=== PATIENT | male | born 1970 | race Two or more races ===

== ENCOUNTER → 2021-06-19 | Outpatient (CLI) | payer OTHER, MEDICAID, MEDICARE ==
[2021-06-19 16:26] LABS: Basophils # (auto) 0.1 10 ^3/uL (0-0.2); Basophils % (auto) 1.6 % (0.0-2.0); Eosinophils # (auto) 0 10 ^3/uL (0-0.8); Eosinophils % (auto) 0.5 % (0.0-7.0); Hematocrit 43.3 % (41.0-53.0); Hemoglobin 15.1 g/dL (13.5-17.5); Lymphocytes % (auto) 25.2 % (10.0-50.0); Mean Corpuscular Hemoglobin 29.7 pg (28.0-32.0); Mean Corpuscular Volume 85.1 fL (80.0-100.0); Monocytes # (auto) 0.4 10 ^3/uL (0-1.3); Monocytes % (auto) 5.4 % (0.0-12.0); Neutrophils # (auto) 5.4 10 ^3/uL (1.6-8.6); Neutrophils % (auto) 67.3 % (37.0-80.0); Nucleated Red Blood Cells % 0.1 %; Red Blood Cells 5.09 10^6/uL (4.5-5.90); Red Cell Distribution Width 12.7 % (11.8-14.3); White Blood Cell 8.1 10^3/uL (4.4-10.8)
[2021-06-19 16:43] LABS: Albumin 3.4 g/dL (3.4-5.0); Calcium 8.5 mg/dL (8.5-10.1); Potassium 3.7 mmol/L (3.5-5.1)
[2021-06-19 16:48] LABS: BUN/Creatinine Ratio 9.7; Bilirubin, Total 0.5 mg/dL (0.2-1.0); Total Protein 7.3 g/dL (6.4-8.2)
== END | disposition home or self-care (01) ==
LOC: LAB 16:09
PROVIDERS: ATTEND Student in an Organized Health Care Education/Training Program
DX: Z00.00 Encounter for general adult medical examination without abnormal findings (principal)
CPT/HCPCS: 36415; 80053; 80061; 82274; 83036; 85025

== ENCOUNTER → 2022-02-08 | Outpatient (CLI) | payer MEDICAID | END | disposition home or self-care (01) | LOC: Rad HDHVI 10:41 | PROVIDERS: ATTEND Internal Medicine | DX: I25.10 Atherosclerotic heart disease of native coronary artery without angina pectoris (principal); I10 Essential (primary) hypertension | CPT/HCPCS: 93306 ==

== ENCOUNTER → 2022-04-16 | Outpatient (CLI) | payer MEDICAID ==
[~2022-04-16] VITALS: Ht 175.3 cm; Wt 77.1 kg
[~2022-04-16] MED LIST: ADENOSINE 65 MG in GIVE UN-DILUTED 0 ML IV ONE; ADENOSINE 90 MG/30 ML INJ IV ONE
== END | disposition home or self-care (01) ==
LOC: Rad HDHVI 08:15
PROVIDERS: ATTEND Internal Medicine
DX: I10 Essential (primary) hypertension (principal); I25.10 Atherosclerotic heart disease of native coronary artery without angina pectoris; I25.2 Old myocardial infarction; E78.5 Hyperlipidemia, unspecified; R07.9 Chest pain, unspecified; Z82.49 Family history of ischemic heart disease and other diseases of the circulatory system
CPT/HCPCS: 78452; 93005; 96374; 96375; J0153

== ENCOUNTER 2022-08-20 13:20 | Emergency (ER) | payer OTHER, MEDICAID ==
[~2022-08-20] VITALS: Ht 175.3 cm; Wt 63.0 kg
[2022-08-20 14:29] LABS: Urine Bacteria NONE SEEN /hpf (None Seen); Urine Blood Negative /uL (Negative); Urine Specific Gravity 1.004 (1.001-1.035); Urine WBC <1 /hpf (0 - 3)
[2022-08-20] MEDS ORDERED: ACETAMINOPHEN 325 MG TAB PO ONE (14:30)
[2022-08-20] MEDS ORDERED: IBUP-1455 PO (15:08)
[2022-08-20] MEDS ORDERED: cefTRIAXone SODIUM 250 MG VL IM ONE (15:15)
[2022-08-20] MEDS ORDERED: AZITHROMYCIN 250 MG TAB PO ONE (15:15)
[2022-08-20 15:58] VITALS: BP 124/80
== END 2022-08-20 16:02 | disposition home or self-care (01) ==
LOC: ER 13:20
DX: R30.0 Dysuria (principal)
CPT/HCPCS: 81001; 87491; 87591; 96372; 99283; J0696

== ENCOUNTER 2022-08-27 18:04 | Emergency (ER) | payer OTHER, MEDICAID ==
[~2022-08-27] VITALS: Ht 175.3 cm; Wt 77.6 kg
[~2022-08-27 18:04] MED LIST changes: -ADENOSINE 65 MG in GIVE UN-DILUTED 0 ML IV ONE; -ADENOSINE 90 MG/30 ML INJ IV ONE; +IBUP-1455 PO
[2022-08-27 19:26] LABS: Basophils # (auto) 0.1 10 ^3/uL (0-0.2); Basophils % (auto) 1.7 % (0.0-2.0); Eosinophils # (auto) 0.6 10 ^3/uL (0-0.8); Eosinophils % (auto) 8.1 % (0.0-7.0); Hematocrit 47.3 % (41.0-53.0); Lymphocytes # (auto) 1.3 10 ^3/uL (0.4-5.4); Lymphocytes % (auto) 18.2 % (10.0-50.0); Mean Corpuscular Hemoglobin 29.1 pg (28.0-32.0); Mean Corpuscular Hgb Conc. 33.8 g/dL (32.0-36.0); Mean Corpuscular Volume 86.3 fL (80.0-100.0); Monocytes # (auto) 0.3 10 ^3/uL (0-1.3); Monocytes % (auto) 4.2 % (0.0-12.0); Neutrophils # (auto) 4.9 10 ^3/uL (1.6-8.6); Neutrophils % (auto) 67.8 % (37.0-80.0); Nucleated Red Blood Cells % 0.2 %; Red Blood Cells 5.49 10^6/uL (4.5-5.90); Red Cell Distribution Width 12.9 % (11.8-14.3); White Blood Cell 7.2 10^3/uL (4.4-10.8)
[2022-08-27 19:45] LABS: Calcium 8.6 mg/dL (8.5-10.1); Potassium 4.2 mmol/L (3.5-5.1)
[2022-08-27 19:50] LABS: BUN/Creatinine Ratio 9.9 (10.0-20.0); Bilirubin, Total 0.6 mg/dL (0.2-1.0)
[2022-08-27 20:11] LABS: Urine Bacteria NONE SEEN /hpf (None Seen); Urine Blood Negative /uL (Negative); Urine Specific Gravity 1.003 (1.001-1.035); Urine WBC <1 /hpf (0 - 3)
[2022-08-27] MEDS ORDERED: CEPH500C PO (20:29)
[2022-08-27] MEDS ORDERED: MECL1TAB42 PO (20:29)
[2022-08-27] MEDS ORDERED: ZOFR4T PO (20:29)
[2022-08-27] MEDS ORDERED: IBU600T PO (20:29)
[2022-08-27] MEDS ORDERED: SODIUM CHLORIDE 0.9% 1,000 ML IV ONE (20:30)
[2022-08-27] MEDS ORDERED: IBUPROFEN 600 MG TAB PO ONE (20:30)
[2022-08-27] MEDS ORDERED: PHENAZOPYRIDINE HCL 100 MG TAB PO ONE (20:30)
[2022-08-27] MEDS ORDERED: MECLIZINE HCL 25 MG TAB PO ONE (20:30)
[2022-08-27] MEDS ORDERED: ONDANSETRON ODT 4 MG TAB PO ONE (20:30)
[2022-08-27 21:16] VITALS: BP 131/89; PULSE 78; RESP 16; TEMP 98; O2SAT 99
== END 2022-08-27 22:18 | disposition home or self-care (01) ==
LOC: ER 18:04
DX: R42 Dizziness and giddiness (principal); R51.9 Headache, unspecified; E86.0 Dehydration; N39.0 Urinary tract infection, site not specified; I10 Essential (primary) hypertension
CPT/HCPCS: 36415; 70450; 80053; 81001; 84484; 85025; 93005; 96360; 99284; J7030; J8597; Q0162

== ENCOUNTER 2022-09-02 05:54 | Emergency (ER) | payer OTHER, MEDICAID ==
[~2022-09-02] VITALS: Ht 175.3 cm; Wt 54.0 kg
[~2022-09-02 05:54] MED LIST changes: +CEPH500C PO; +IBU600T PO; +MECL1TAB42 PO; +ZOFR4T PO
[2022-09-02 06:16] LABS: Basophils # (auto) 0 10 ^3/uL (0-0.2); Basophils % (auto) 0.1 % (0.0-2.0); Eosinophils # (auto) 0 10 ^3/uL (0-0.8); Eosinophils % (auto) 0.5 % (0.0-7.0); Hematocrit 47.6 % (41.0-53.0); Hemoglobin 16.3 g/dL (13.5-17.5); Lymphocytes # (auto) 2.3 10 ^3/uL (0.4-5.4); Lymphocytes % (auto) 30.8 % (10.0-50.0); Mean Corpuscular Hemoglobin 29.9 pg (28.0-32.0); Mean Corpuscular Hgb Conc. 34.3 g/dL (32.0-36.0); Mean Corpuscular Volume 87.1 fL (80.0-100.0); Monocytes # (auto) 0.5 10 ^3/uL (0-1.3); Monocytes % (auto) 6.6 % (0.0-12.0); Neutrophils # (auto) 4.6 10 ^3/uL (1.6-8.6); Nucleated Red Blood Cells % 0.1 %; Red Blood Cells 5.46 10^6/uL (4.5-5.90); Red Cell Distribution Width 13.1 % (11.8-14.3); White Blood Cell 7.5 10^3/uL (4.4-10.8)
[2022-09-02 06:39] LABS: Albumin 3.7 g/dL (3.4-5.0); BUN/Creatinine Ratio 10.8 (10.0-20.0); Calcium 8.3 mg/dL (8.5-10.1)
[2022-09-02 06:41] LABS: Bilirubin, Total 0.8 mg/dL (0.2-1.0); Total Protein 7.3 g/dL (6.4-8.2)
[2022-09-02 06:46] LABS: Urine Bacteria NONE SEEN /hpf (None Seen); Urine Blood Negative /uL (Negative); Urine Mucus FEW (None Seen); Urine Specific Gravity 1.019 (1.001-1.035); Urine WBC 2 /hpf (0 - 3)
[2022-09-02] MEDS ORDERED: MECL1TAB42 PO (08:13)
[2022-09-02 08:15] VITALS: BP 138/82; PULSE 86; RESP 16; TEMP 97.8; O2SAT 98
[2022-09-02] MEDS ORDERED: MECLIZINE HCL 25 MG TAB PO ONE (08:15)
== END 2022-09-02 08:36 | disposition home or self-care (01) ==
LOC: ER 05:54
DX: R42 Dizziness and giddiness (principal); I10 Essential (primary) hypertension; R30.0 Dysuria; I25.10 Atherosclerotic heart disease of native coronary artery without angina pectoris
CPT/HCPCS: 36415; 70450; 80053; 81001; 84484; 85025; 93005; 99284; J8597

== ENCOUNTER 2022-09-13 19:36 | Emergency (ER) | payer OTHER, MEDICAID ==
[~2022-09-13] VITALS: Ht 175.3 cm; Wt 74.7 kg
[2022-09-13 22:13] LABS: Urine Bacteria NONE SEEN /hpf (None Seen); Urine Blood Negative /uL (Negative); Urine Clarity Clear (Clear); Urine Color Colorless (Yellow); Urine Protein, UAD Negative (Negative); Urine Specific Gravity 1.005 (1.001-1.035); Urine Urobilinogen Normal (Negative); Urine WBC <1 /hpf (0 - 3)
[2022-09-13 22:17] LABS: Basophils # (auto) 0 10 ^3/uL (0-0.2); Basophils % (auto) 0.2 % (0.0-2.0); Eosinophils # (auto) 0 10 ^3/uL (0-0.8); Eosinophils % (auto) 0.6 % (0.0-7.0); Hematocrit 49.7 % (41.0-53.0); Hemoglobin 16.7 g/dL (13.5-17.5); Lymphocytes # (auto) 2.1 10 ^3/uL (0.4-5.4); Lymphocytes % (auto) 24.9 % (10.0-50.0); Mean Corpuscular Hemoglobin 29.2 pg (28.0-32.0); Mean Corpuscular Hgb Conc. 33.5 g/dL (32.0-36.0); Mean Corpuscular Volume 87.1 fL (80.0-100.0); Monocytes # (auto) 0.6 10 ^3/uL (0-1.3); Monocytes % (auto) 7.4 % (0.0-12.0); Neutrophils # (auto) 5.6 10 ^3/uL (1.6-8.6); Neutrophils % (auto) 66.9 % (37.0-80.0); Nucleated Red Blood Cells % 0.1 %; Red Blood Cells 5.71 10^6/uL (4.5-5.90); White Blood Cell 8.4 10^3/uL (4.4-10.8)
[2022-09-13 22:35] LABS: Albumin 3.9 g/dL (3.4-5.0); Calcium 8.9 mg/dL (8.5-10.1); Magnesium 2.7 mg/dL (1.6-2.6); Potassium 4.3 mmol/L (3.5-5.1)
[2022-09-13 22:38] LABS: Bilirubin, Total 0.4 mg/dL (0.2-1.0)
[2022-09-14 00:24] VITALS: BP 125/89; PULSE 71; RESP 18; TEMP 97.8; O2SAT 96
[2022-09-14] MEDS ORDERED: PROM25TA10 PO (00:26)
[2022-09-14] MEDS ORDERED: PROMETHAZINE HCL 6.25 MG/5 ML ORAL SYRUP PO ONE (00:30)
== END 2022-09-14 00:43 | disposition home or self-care (01) ==
LOC: ER 19:36
DX: R42 Dizziness and giddiness (principal); R51.9 Headache, unspecified; I10 Essential (primary) hypertension; I25.10 Atherosclerotic heart disease of native coronary artery without angina pectoris; Z79.899 Other long term (current) drug therapy
CPT/HCPCS: 36415; 70450; 71045; 80053; 81001; 83735; 84484; 85025; 93005

== ENCOUNTER 2022-10-24 19:37 | Emergency (ER) | payer OTHER, MEDICAID ==
[~2022-10-24] VITALS: Ht 175.3 cm; Wt 75.0 kg
[~2022-10-24 19:37] MED LIST changes: +PROM25TA10 PO
[2022-10-24] MEDS ORDERED: KETOROLAC TROMETH 60MG/2ML VIAL IM ONE (20:45)
[2022-10-24] MEDS ORDERED: AZITHROMYCIN 250 MG TAB PO ONE (20:45)
[2022-10-24] MEDS ORDERED: cefTRIAXone SOD 1,000 MG VL IM ONE (20:45)
[2022-10-24 21:18] LABS: Urine Bacteria NONE SEEN /hpf (None Seen); Urine Blood Negative /uL (Negative); Urine Clarity Clear (Clear); Urine Color Yellow (Yellow); Urine Protein, UAD Negative (Negative); Urine Specific Gravity 1.003 (1.001-1.035); Urine Urobilinogen Normal (Negative); Urine WBC <1 /hpf (0 - 3); Urine pH 6.5 (5.0-8.0)
[2022-10-24 21:44] LABS: Basophils # (auto) 0 10 ^3/uL (0-0.2); Basophils % (auto) 0.2 % (0.0-2.0); Eosinophils # (auto) 0 10 ^3/uL (0-0.8); Eosinophils % (auto) 0.4 % (0.0-7.0); Hematocrit 46.7 % (41.0-53.0); Hemoglobin 16.1 g/dL (13.5-17.5); Lymphocytes # (auto) 2.3 10 ^3/uL (0.4-5.4); Lymphocytes % (auto) 31.9 % (10.0-50.0); Mean Corpuscular Hemoglobin 29.9 pg (28.0-32.0); Mean Corpuscular Hgb Conc. 34.6 g/dL (32.0-36.0); Mean Corpuscular Volume 86.5 fL (80.0-100.0); Monocytes # (auto) 0.6 10 ^3/uL (0-1.3); Monocytes % (auto) 7.9 % (0.0-12.0); Neutrophils # (auto) 4.3 10 ^3/uL (1.6-8.6); Neutrophils % (auto) 59.6 % (37.0-80.0); Nucleated Red Blood Cells % 0.1 %; Red Blood Cells 5.39 10^6/uL (4.5-5.90); Red Cell Distribution Width 13.5 % (11.8-14.3); White Blood Cell 7.3 10^3/uL (4.4-10.8)
[2022-10-24 22:06] LABS: Alanine Aminotransferase 18 U/L (7-40); Albumin 4.4 g/dL (3.2-4.8); Alkaline Phosphatase 92 U/L (46-116); Anion Gap 5 (5-15); Aspartate Aminotransferase 16 U/L (13-40); BUN/Creatinine Ratio 7.7 (10.0-20.0); Blood Urea Nitrogen 7 mg/dL (9-23); Calcium 9.5 mg/dL (8.7-10.4); Carbon Dioxide 27 mmol/L (20-30); Chloride 104 mmol/L (98-107); Glucose 97 mg/dL (74-106); Potassium 4.3 mmol/L (3.5-5.1); Sodium 136 mmol/L (136-145)
[2022-10-24 22:07] LABS: Bilirubin, Total 0.8 mg/dL (0.2-1.0); Total Protein 7.7 g/dL (5.7-8.2)
[2022-10-25] MEDS ORDERED: HYDROcodone-ACET 5/325MG TAB PO ONE
[2022-10-25] MEDS ORDERED: KETOROLAC TROMETH 60MG/2ML VIAL IM ONE
[2022-10-25] MEDS ORDERED: TRAM50TA2 PO (00:02)
[2022-10-25 00:10] VITALS: PULSE 72; O2SAT 98
[2022-10-25 00:23] VITALS: BP 132/99; PULSE 76; RESP 16; TEMP 98.1; O2SAT 98
[2022-10-26 06:06] LABS: RPR Non Reactive (Non Reactive)
[2022-10-27 08:06] LABS: Chlamydia Trachomatis, NAA Negative (Negative); Neisseria gonorrhoeae, NAA Negative (Negative)
== END 2022-10-25 00:33 | disposition home or self-care (01) ==
LOC: ER 19:37
DX: R30.0 Dysuria (principal); I10 Essential (primary) hypertension; I25.10 Atherosclerotic heart disease of native coronary artery without angina pectoris; Z79.1 Long term (current) use of non-steroidal anti-inflammatories (NSAID); Z79.899 Other long term (current) drug therapy
CPT/HCPCS: 36415; 80053; 81001; 85025; 86592; 87086; 87491; 87591; 96372; 99284; J0696; J1885

== ENCOUNTER 2022-11-17 09:54 | Emergency (ER) | payer OTHER, MEDICAID ==
[~2022-11-17] VITALS: Ht 175.3 cm; Wt 77.1 kg
[~2022-11-17 09:54] MED LIST changes: +TRAM50TA2 PO
[2022-11-17 11:03] LABS: Basophils # (auto) 0 10 ^3/uL (0-0.2); Basophils % (auto) 0.1 % (0.0-2.0); Eosinophils # (auto) 0 10 ^3/uL (0-0.8); Hematocrit 50.8 % (41.0-53.0); Hemoglobin 17.2 g/dL (13.5-17.5); Lymphocytes # (auto) 1.3 10 ^3/uL (0.4-5.4); Lymphocytes % (auto) 18.6 % (10.0-50.0); Mean Corpuscular Hemoglobin 29.6 pg (28.0-32.0); Mean Corpuscular Hgb Conc. 33.9 g/dL (32.0-36.0); Mean Corpuscular Volume 87.2 fL (80.0-100.0); Monocytes # (auto) 0.4 10 ^3/uL (0-1.3); Monocytes % (auto) 6.1 % (0.0-12.0); Neutrophils # (auto) 5.1 10 ^3/uL (1.6-8.6); Neutrophils % (auto) 75.2 % (37.0-80.0); Nucleated Red Blood Cells % 0.1 %; Red Blood Cells 5.82 10^6/uL (4.5-5.90); Red Cell Distribution Width 13.2 % (11.8-14.3); White Blood Cell 6.7 10^3/uL (4.4-10.8)
[2022-11-17 11:21] LABS: Alanine Aminotransferase 21 U/L (7-40); Albumin 4.5 g/dL (3.2-4.8); Alkaline Phosphatase 101 U/L (46-116); Anion Gap 6 (5-15); Aspartate Aminotransferase 20 U/L (13-40); BUN/Creatinine Ratio 5.6 (10.0-20.0); Blood Urea Nitrogen 5 mg/dL (9-23); Calcium 9.4 mg/dL (8.7-10.4); Carbon Dioxide 28 mmol/L (20-30); Chloride 104 mmol/L (98-107); Glucose 104 mg/dL (74-106); Potassium 4.7 mmol/L (3.5-5.1); Sodium 138 mmol/L (136-145); Total Protein 8.1 g/dL (5.7-8.2)
[2022-11-17 11:29] LABS: Urine Bacteria NONE SEEN /hpf (None Seen); Urine Blood Negative /uL (Negative); Urine Clarity Clear (Clear); Urine Color STRAW (Yellow); Urine Protein, UAD Negative (Negative); Urine Specific Gravity 1.007 (1.001-1.035); Urine Urobilinogen Normal (Negative); Urine WBC 1 /hpf (0 - 3)
[2022-11-17] MEDS ORDERED: ONDANSETRON ODT 4 MG TAB PO ONE (12:00)
[2022-11-17] MEDS ORDERED: MAALOX PLUS or MAALOX 30 ML PO ONE (12:00)
[2022-11-17] MEDS ORDERED: LIDOCAINE VISCOUS 2% 15ML UD PO ONE (12:00)
[2022-11-17] MEDS ORDERED: DONNATAL 5ml ORAL Elix (BELLADONNA ALK-PHENOBARB) PO ONE (12:00)
[2022-11-17 14:24] LABS: Lactic Acid w/Reflex 2.4 mmol/L (0.4-2.0)
[2022-11-17] MEDS ORDERED: NAP500T PO (16:28)
[2022-11-17 16:40] VITALS: BP 133/92; PULSE 100; RESP 17; TEMP 98.1; O2SAT 97
== END 2022-11-17 17:41 | disposition home or self-care (01) ==
LOC: ER 09:54
DX: N50.812 Left testicular pain (principal); N50.811 Right testicular pain; N43.3 Hydrocele, unspecified; R10.2 Pelvic and perineal pain; I10 Essential (primary) hypertension
CPT/HCPCS: 36415; 76870; 80053; 81001; 83605; 83690; 84484; 85025; 93005; 99284; Q0162

== ENCOUNTER 2022-11-22 23:26 | Emergency (ER) | payer OTHER, MEDICAID ==
[~2022-11-22] VITALS: Ht 172.7 cm; Wt 90.0 kg
[~2022-11-22 23:26] MED LIST changes: +NAP500T PO
[2022-11-23 00:10] LABS: Basophils # (auto) 0 10 ^3/uL (0-0.2); Basophils % (auto) 0.1 % (0.0-2.0); Eosinophils # (auto) 0 10 ^3/uL (0-0.8); Eosinophils % (auto) 0.5 % (0.0-7.0); Hematocrit 46.5 % (41.0-53.0); Hemoglobin 15.8 g/dL (13.5-17.5); Lymphocytes # (auto) 1.9 10 ^3/uL (0.4-5.4); Lymphocytes % (auto) 23.8 % (10.0-50.0); Mean Corpuscular Hemoglobin 29.5 pg (28.0-32.0); Mean Corpuscular Hgb Conc. 33.9 g/dL (32.0-36.0); Monocytes # (auto) 0.5 10 ^3/uL (0-1.3); Monocytes % (auto) 6.4 % (0.0-12.0); Neutrophils # (auto) 5.4 10 ^3/uL (1.6-8.6); Neutrophils % (auto) 69.2 % (37.0-80.0); Red Blood Cells 5.35 10^6/uL (4.5-5.90); Red Cell Distribution Width 13.2 % (11.8-14.3); White Blood Cell 7.8 10^3/uL (4.4-10.8)
[2022-11-23] MEDS ORDERED: SODIUM CHLORIDE 0.9% 2,700 ML IV ONE (00:15)
[2022-11-23 00:20] VITALS: O2SAT 98
[2022-11-23 00:30] VITALS: TEMP 98.6
[2022-11-23 00:32] LABS: Alanine Aminotransferase 15 U/L (7-40); Albumin 4.2 g/dL (3.2-4.8); Alkaline Phosphatase 91 U/L (46-116); Anion Gap 8 (5-15); Aspartate Aminotransferase 15 U/L (13-40); BUN/Creatinine Ratio 7.2 (10.0-20.0); Blood Urea Nitrogen 6 mg/dL (9-23); Calcium 8.9 mg/dL (8.7-10.4); Carbon Dioxide 24 mmol/L (20-30); Chloride 106 mmol/L (98-107); Glucose 103 mg/dL (74-106); Potassium 3.5 mmol/L (3.5-5.1); Sodium 138 mmol/L (136-145); Total Protein 7.3 g/dL (5.7-8.2)
[2022-11-23] MEDS ORDERED: NITR-87 PO (01:37)
[2022-11-23 02:04] LABS: Urine Bacteria NONE SEEN /hpf (None Seen); Urine Blood Negative /uL (Negative); Urine Clarity Clear (Clear); Urine Color Colorless (Yellow); Urine Protein, UAD Negative (Negative); Urine Specific Gravity 1.005 (1.001-1.035); Urine Urobilinogen Normal (Negative); Urine WBC <1 /hpf (0 - 3)
[2022-11-23 02:17] LABS: Amphetamine Screen, Urine Neg (NEGATIVE); Barbiturate Scree,Urine Neg (NEGATIVE); Benzodiazephine Screen, Urine Neg (NEGATIVE); Cannabinoid Screen, Urine Neg (NEGATIVE); Cocaine Screen, Urine Neg (NEGATIVE); Opiate Scree,Urine Neg (NEGATIVE); Phencyclidine Screen, Urine Neg (NEGATIVE)
[2022-11-23 03:00] VITALS: BP 131/89; PULSE 73; RESP 16; O2SAT 97
== END 2022-11-23 03:37 | disposition home or self-care (01) ==
LOC: EDBD 23:26 → ER 23:26
DX: R06.02 Shortness of breath (principal); T36.8X5A Adverse effect of other systemic antibiotics, initial encounter; R51.9 Headache, unspecified; I10 Essential (primary) hypertension; I25.10 Atherosclerotic heart disease of native coronary artery without angina pectoris; Z79.1 Long term (current) use of non-steroidal anti-inflammatories (NSAID); Z79.899 Other long term (current) drug therapy; Y92.89 Other specified places as the place of occurrence of the external cause
CPT/HCPCS: 36415; 70450; 71045; 80053; 80307; 81001; 83605; 83690; 83735; 83880; 84484; 85025; 87040; 93005; 96360; 99285; J7030

== ENCOUNTER → 2022-12-02 | Outpatient (CLI) | payer OTHER ==
[~2022-12-02] MED LIST changes: +NITR-87 PO
== END | disposition home or self-care (01) ==
LOC: Rad HDHVI 12:51
PROVIDERS: ATTEND Internal Medicine Cardiovascular Disease
DX: R42 Dizziness and giddiness (principal); E78.5 Hyperlipidemia, unspecified
CPT/HCPCS: 93306

== ENCOUNTER 2022-12-25 16:39 | Emergency (ER) | payer OTHER, MEDICAID ==
[~2022-12-25] VITALS: Ht 175.3 cm; Wt 76.0 kg
[2022-12-25 16:47] VITALS: BP 123/61; PULSE 109; RESP 16; TEMP 98.4; O2SAT 98
[2022-12-25] MEDS ORDERED: cefTRIAXone SOD 1,000 MG VL IM ONE (19:45)
[2022-12-25] MEDS ORDERED: IBUPROFEN 600 MG TAB PO ONE (19:45)
[2022-12-25] MEDS ORDERED: DexAMETHasone SOD PHOS 10MG/1ML VIAL INJ IM ONE (19:45)
[2022-12-25] MEDS ORDERED: LIDOCAINE VISCOUS 2% 15ML UD MT ONE (19:45)
[2022-12-25] MEDS ORDERED: PRED20TA2 PO (19:47)
[2022-12-25] MEDS ORDERED: LIDV15LQ MT (19:47)
[2022-12-25] MEDS ORDERED: IBUP1TAB5 PO (19:47)
== END 2022-12-25 20:40 | disposition home or self-care (01) ==
LOC: ER 16:39
DX: J03.90 Acute tonsillitis, unspecified (principal); I10 Essential (primary) hypertension; I25.2 Old myocardial infarction; I25.10 Atherosclerotic heart disease of native coronary artery without angina pectoris; Z79.1 Long term (current) use of non-steroidal anti-inflammatories (NSAID); Z79.899 Other long term (current) drug therapy
CPT/HCPCS: 96372; 99284; J0696; J1100

== ENCOUNTER 2023-01-01 05:02 | Emergency (ER) | payer OTHER, MEDICAID ==
[~2023-01-01] VITALS: Ht 175.3 cm; Wt 77.3 kg
[~2023-01-01 05:02] MED LIST changes: +IBUP1TAB5 PO; +LIDV15LQ MT; +PRED20TA2 PO
[2023-01-01 06:16] VITALS: TEMP 98
[2023-01-01] MEDS ORDERED: ACETAMINOPHEN/CODEINE#3 (300/30mg) TAB PO ONE (06:30)
[2023-01-01 06:52] LABS: Hematocrit 47.7 % (41.0-53.0); Hemoglobin 16.2 g/dL (13.5-17.5); Mean Corpuscular Hemoglobin 28.9 pg (28.0-32.0); Mean Corpuscular Volume 85.1 fL (80.0-100.0); Red Blood Cells 5.61 10^6/uL (4.5-5.90); Red Cell Distribution Width 13.1 % (11.8-14.3); White Blood Cell 17.2 10^3/uL (4.4-10.8)
[2023-01-01 07:06] LABS: Alanine Aminotransferase 40 U/L (7-40); Albumin 3.8 g/dL (3.2-4.8); Alkaline Phosphatase 92 U/L (46-116); Anion Gap 4 (5-15); Aspartate Aminotransferase 22 U/L (13-40); BUN/Creatinine Ratio 21.7 (10.0-20.0); Blood Urea Nitrogen 20 mg/dL (9-23); Calcium 8.4 mg/dL (8.5-10.1); Carbon Dioxide 26 mmol/L (20-30); Chloride 98 mmol/L (98-107); Glucose 108 mg/dL (74-106); Potassium 3.9 mmol/L (3.5-5.1); Sodium 128 mmol/L (136-145)
[2023-01-01 07:07] LABS: Bilirubin, Total 1.6 mg/dL (0.2-1.0); Total Protein 6.8 g/dL (5.7-8.2)
[2023-01-01 07:27] LABS: Band Neutrophils % (manual) 0; Basophils % (manual) 0 (0.0-2.0); Blast Cells 0; Eosinophils % (manual) 0 (0-7); Metamyelocytes % 0; Myelocytes % 0; Promyelocytes % 0; Reactive Lymphocytes 0
[2023-01-01 07:52] LABS: Urine Bacteria FEW /hpf (None Seen); Urine Blood Negative /uL (Negative); Urine Clarity Clear (Clear); Urine Color Straw (Yellow); Urine Protein, UAD Negative (Negative); Urine Specific Gravity 1.005 (1.001-1.035); Urine Urobilinogen Normal (Negative); Urine WBC <1 /hpf (0 - 3)
[2023-01-01] MEDS ORDERED: HYDROcodone-ACET 5/325MG TAB PO ONE (08:00)
[2023-01-01] MEDS ORDERED: KETOROLAC TROMETH 60MG/2ML VIAL IM ONE (08:45)
[2023-01-01] MEDS ORDERED: DexAMETHasone SOD PHOS 10MG/1ML VIAL INJ IM ONE (08:45)
[2023-01-01] MEDS ORDERED: LEVO750T8 PO ×2 (09:09)
[2023-01-01] MEDS ORDERED: TRAM50TA2 PO (09:09)
[2023-01-01] MEDS ORDERED: IBUP-1455 PO (09:10)
[2023-01-01 09:13] LABS: Lymphocytes % (manual) 9 (10.0-50.0); Monocytes % (manual) 7 (0-12); Platelet Estimate Adequate
[2023-01-01 09:20] VITALS: BP 125/91; PULSE 90; RESP 18; O2SAT 96
[2023-01-08] MEDS ORDERED: AZIT-81 PO (10:44)
[2023-01-08] MEDS ORDERED: BACDST PO (10:44)
== END 2023-01-01 09:21 | disposition home or self-care (01) ==
LOC: ER 05:02
DX: J18.9 Pneumonia, unspecified organism (principal); N41.9 Inflammatory disease of prostate, unspecified; I10 Essential (primary) hypertension; I25.2 Old myocardial infarction
CPT/HCPCS: 36415; 74176; 80053; 81001; 85007; 85027; 96372; 99285; J1100; J1885

== ENCOUNTER 2023-02-28 13:38 | Emergency (ER) | payer OTHER, MEDICAID ==
[~2023-02-28] VITALS: Ht 175.3 cm; Wt 71.4 kg
[~2023-02-28 13:38] MED LIST changes: +AZIT-81 PO; +BACDST PO
[2023-02-28 14:07] VITALS: BP 140/90; PULSE 104; RESP 20; O2SAT 97
[2023-02-28 14:49] LABS: Urine Bacteria NONE SEEN /hpf (None Seen); Urine Blood Negative /uL (Negative); Urine Clarity Clear (Clear); Urine Color Colorless (Yellow); Urine Protein, UAD Negative (Negative); Urine Specific Gravity 1.003 (1.001-1.035); Urine Urobilinogen Normal (Negative); Urine WBC <1 /hpf (0 - 3); Urine pH 6.5 (5.0-8.0)
[2023-02-28 15:04] LABS: Basophils # (auto) 0 10 ^3/uL (0-0.2); Basophils % (auto) 0.1 % (0.0-2.0); Eosinophils # (auto) 0 10 ^3/uL (0-0.8); Eosinophils % (auto) 0.3 % (0.0-7.0); Hematocrit 49.4 % (41.0-53.0); Hemoglobin 16.5 g/dL (13.5-17.5); Lymphocytes % (auto) 23.3 % (10.0-50.0); Mean Corpuscular Hemoglobin 29.5 pg (28.0-32.0); Mean Corpuscular Hgb Conc. 33.5 g/dL (32.0-36.0); Mean Corpuscular Volume 87.9 fL (80.0-100.0); Monocytes # (auto) 0.6 10 ^3/uL (0-1.3); Monocytes % (auto) 6.5 % (0.0-12.0); Neutrophils % (auto) 69.8 % (37.0-80.0); Nucleated Red Blood Cells % 0.3 %; Red Blood Cells 5.61 10^6/uL (4.5-5.90); Red Cell Distribution Width 13.5 % (11.8-14.3); White Blood Cell 8.5 10^3/uL (4.4-10.8)
[2023-02-28 15:20] LABS: Alanine Aminotransferase 27 U/L (7-40); Albumin 4.4 g/dL (3.2-4.8); Alkaline Phosphatase 97 U/L (46-116); Anion Gap 6 (5-15); Aspartate Aminotransferase 21 U/L (13-40); BUN/Creatinine Ratio 10.3 (10.0-20.0); Blood Urea Nitrogen 8 mg/dL (9-23); Calcium 9.3 mg/dL (8.7-10.4); Carbon Dioxide 27 mmol/L (20-30); Chloride 108 mmol/L (98-107); Glucose 98 mg/dL (74-106); Lipase 45 U/L (12-53); Potassium 4.4 mmol/L (3.5-5.1); Sodium 141 mmol/L (136-145)
[2023-02-28 15:21] LABS: Bilirubin, Total 0.7 mg/dL (0.2-1.0); Total Protein 7.7 g/dL (5.7-8.2)
[2023-02-28] MEDS ORDERED: IOHEXOL 300 MG/ML 100ML BOTTLE IJ ONE (15:37)
== END 2023-02-28 21:13 | disposition left against medical advice (07) ==
LOC: ER 13:38
DX: N28.1 Cyst of kidney, acquired (principal); I10 Essential (primary) hypertension; I25.2 Old myocardial infarction; Z88.1 Allergy status to other antibiotic agents
CPT/HCPCS: 36415; 74177; 76775; 80053; 81001; 83690; 84484; 85025; 99285; Q9967

== ENCOUNTER → 2023-09-10 | Outpatient (CLI) | payer OTHER, MEDICAID ==
[~2023-09-10] VITALS: Ht 175.3 cm; Wt 80.3 kg
[~2023-09-10] MED LIST changes: +ASPI1TAB20 PO; +AZIT-185 PO; -AZIT-81 PO; +LIDO2SOL MT; -LIDV15LQ MT; +LOSA-535 PO; +METO-289 PO; +PANT40TA2 PO
[2023-09-10 10:59] LABS: Urine Bacteria None Seen /hpf (None Seen)
[2023-09-10 11:08] LABS: Basophils # (auto) 0 10 ^3/uL (0-0.2); Basophils % (auto) 0.1 % (0.0-2.0); Eosinophils # (auto) 0 10 ^3/uL (0-0.8); Eosinophils % (auto) 0.3 % (0.0-7.0); Hematocrit 50.3 % (41.0-53.0); Hemoglobin 17.4 g/dL (13.5-17.5); Lymphocytes # (auto) 1.5 10 ^3/uL (0.4-5.4); Lymphocytes % (auto) 23.8 % (10.0-50.0); Mean Corpuscular Hemoglobin 29.8 pg (28.0-32.0); Mean Corpuscular Hgb Conc. 34.5 g/dL (32.0-36.0); Mean Corpuscular Volume 86.4 fL (80.0-100.0); Monocytes # (auto) 0.5 10 ^3/uL (0-1.3); Monocytes % (auto) 7.5 % (0.0-12.0); Neutrophils # (auto) 4.3 10 ^3/uL (1.6-8.6); Neutrophils % (auto) 68.3 % (37.0-80.0); Nucleated Red Blood Cells % 0.2 %; Platelet Count (auto) 239 10^3/uL (140-450); Red Blood Cells 5.82 10^6/uL (4.5-5.90); Red Cell Distribution Width 13.3 % (11.8-14.3); White Blood Cell 6.3 10^3/uL (4.4-10.8)
[2023-09-10 11:19] LABS: Urine Blood Negative /uL (Negative); Urine Clarity Clear (Clear); Urine Color Light-Yellow (Yellow); Urine Protein, UAD Negative (Negative); Urine Specific Gravity 1.006 (1.001-1.035); Urine Urobilinogen Normal (Negative); Urine WBC 1 /hpf (0 - 3)
[2023-09-10 11:30] LABS: Alanine Aminotransferase 16 U/L (7-40); Alkaline Phosphatase 105 U/L (46-116); Anion Gap 6 (5-15); BUN/Creatinine Ratio 6.2 (10.0-20.0); Blood Urea Nitrogen 6 mg/dL (9-23); Calcium 9.5 mg/dL (8.7-10.4); Carbon Dioxide 28 mmol/L (20-30); Chloride 104 mmol/L (98-107); Glucose 98 mg/dL (74-106); Sodium 138 mmol/L (136-145)
[2023-09-10 11:31] LABS: Albumin 4.3 g/dL (3.2-4.8); Aspartate Aminotransferase 13 U/L (13-40); Bilirubin, Total 0.9 mg/dL (0.2-1.0); Total Protein 7.6 g/dL (5.7-8.2)
[2023-09-10 11:35] LABS: INR 1.08 (0.9-1.15); Partial Thromboplastin Time 30.4 SEC (24.5-34.5); Prothrombin Time 11.4 sec (9.3-11.8)
== END | disposition home or self-care (01) ==
LOC: LAB 10:22 → EDSTATUS 09-11 13:15
PROVIDERS: ATTEND Internal Medicine Gastroenterology
DX: K59.00 Constipation, unspecified (principal); R10.9 Unspecified abdominal pain
CPT/HCPCS: 36415; 80053; 81001; 85025; 85610; 85730

== ENCOUNTER → 2023-09-26 | Outpatient (CLI) | payer MEDICAID, MEDICARE, OTHER ==
[~2023-09-26] VITALS: Ht 175.3 cm; Wt 80.3 kg
[~2023-09-26] MED LIST changes: +ADENOSINE 67 MG in GIVE UN-DILUTED 0 ML IV ONE; +ADENOSINE 90 MG/30 ML INJ IV ONE; -AZIT-185 PO; -BACDST PO; -CEPH500C PO; -IBU600T PO; -IBUP-1455 PO; -IBUP1TAB5 PO; -LIDO2SOL MT; -MECL1TAB42 PO; -NAP500T PO; -NITR-87 PO; -PRED20TA2 PO; -PROM25TA10 PO; -TRAM50TA2 PO; -ZOFR4T PO
== END | disposition home or self-care (01) ==
LOC: Rad HDHVI 09:23
PROVIDERS: ATTEND Internal Medicine Cardiovascular Disease
DX: I10 Essential (primary) hypertension (principal); R42 Dizziness and giddiness; I25.2 Old myocardial infarction; E78.5 Hyperlipidemia, unspecified; I73.9 Peripheral vascular disease, unspecified; I25.10 Atherosclerotic heart disease of native coronary artery without angina pectoris; Z82.49 Family history of ischemic heart disease and other diseases of the circulatory system
CPT/HCPCS: 78452; 93005; 96374; 96375; A9500; J0153

== ENCOUNTER → 2023-09-30 | Outpatient (CLI) | payer OTHER ==
[~2023-09-30] MED LIST changes: -ADENOSINE 67 MG in GIVE UN-DILUTED 0 ML IV ONE; -ADENOSINE 90 MG/30 ML INJ IV ONE
== END | disposition home or self-care (01) ==
LOC: Rad HDHVI 10:47
PROVIDERS: ATTEND Internal Medicine Cardiovascular Disease
DX: I10 Essential (primary) hypertension (principal); R00.2 Palpitations
CPT/HCPCS: 93306

== ENCOUNTER → 2024-02-16 | Outpatient (CLI) | payer OTHER, MEDICAID | END | disposition home or self-care (01) | LOC: Rad HDHVI 13:02 | PROVIDERS: ATTEND Internal Medicine Cardiovascular Disease | DX: M79.605 Pain in left leg (principal); M79.604 Pain in right leg | CPT/HCPCS: 93925 ==

== ENCOUNTER → 2024-10-01 | Outpatient (CLI) | payer MEDICARE, MEDICAID | END | disposition home or self-care (01) | LOC: Rad HDHVI 08:56 | PROVIDERS: ATTEND Internal Medicine Cardiovascular Disease | DX: I34.0 Nonrheumatic mitral (valve) insufficiency (principal); I11.0 Hypertensive heart disease with heart failure; I50.32 Chronic diastolic (congestive) heart failure | CPT/HCPCS: 93306 ==

== ENCOUNTER 2024-10-13 09:37 | Outpatient (CLI) | payer MEDICARE, MEDICAID ==
[~2024-10-13] VITALS: Ht 175.3 cm; Wt 83.0 kg
[2024-10-13] MEDS ORDERED: ADENOSINE 90 MG/30 ML INJ IV ONE (10:27)
[2024-10-13] MEDS ORDERED: ADENOSINE 70 MG in GIVE UN-DILUTED 0 ML IV ONE (13:15)
== END 2024-10-13 17:00 | disposition home or self-care (01) ==
LOC: Rad HDHVI 09:37
PROVIDERS: ATTEND Internal Medicine Cardiovascular Disease
DX: R00.0 Tachycardia, unspecified (principal); Z13.6 Encounter for screening for cardiovascular disorders; I11.0 Hypertensive heart disease with heart failure; I50.32 Chronic diastolic (congestive) heart failure; I73.9 Peripheral vascular disease, unspecified; I25.2 Old myocardial infarction; I25.10 Atherosclerotic heart disease of native coronary artery without angina pectoris; E78.5 Hyperlipidemia, unspecified; R06.00 Dyspnea, unspecified
CPT/HCPCS: 78452; 93017; A9500; J0153